=== PATIENT | male | born 1995 | race Caucasian/White ===

== ENCOUNTER 2017-09-06 20:06 | Emergency (ER) | payer OTHER ==
[~2017-09-06] VITALS: Ht 177.8 cm; Wt 81.6 kg
[2017-09-06] MEDS ORDERED: VIBRAMYCIN100 MG PO (21:24)
--- NOTE | 2017-09-06 21:25 | ED SKIN/ALLERGY COMPLAINT ---
History of Present Illness General Chief Complaint: Animal/Insect Bite Stated Complaint: INSECT BITE Source: patient Exam Limitations: no limitations Vital Signs & Intake/Output Vital Signs & Intake/Output Vital Signs Date Time Temp Pulse Resp B/P B/P Pulse O2 O2 Flow FiO2 Mean Ox Delivery Rate 09/07 2127 98.2 80 17 117/76 98 Room Air 09/06 2042 98.0 81 18 111/73 97 Room Air ED Intake and Output 09/07 0000 09/06 1200 Intake Total Output Total Balance Patient 180 lb Weight Weight Reported by Patient Measurement Method Allergies Coded Allergies: No Known Allergies (09/06/17) Reconcile Medications Doxycycline Hyclate (Vibramycin) 100 MG CAPSULE 1 CAP PO BID LYME Triage Note: PT FROM HOME C/O TICK BITE? TO PTS RIGHT SHOULDER? PT STATES HE HAS BEEN OUTSIDE THE PAST WEEK AND THEN 2 DAYS PRIOR NOTED A LITTLE PATO AREA TO HIS RIGHT SHOULDER, PT THOUGHT IT WAS JUST A BRUISE. PTS MOTHER NOTICED A BITE WITH A RED RING THAT BEGAN TO FORM LAST NIGHT. PTS VSS. Triage Nurses Notes Reviewed? yes Onset: Abrupt Duration: day(s): (2), constant, continues in ED Timing: single episode today Severity: mild, moderate Location: extremities Possible Factors: insect bite No Modifying Factors: none HPI: 22-year-old male with no past medical history positive for evaluation of a rash to his right shoulder. Patient states that he noticed a small red area on his right shoulder several days ago that progressed to form a bull's-eye rash. He denies any other symptoms he never found a tick on him. No fever or joint pain fatigue weakness sweats or chills. (Paddy Townsend) Past History Travel History Traveled to [place] past 21 day No Medical History Any Pertinent Medical History? see below for history Neurological: NONE EENT: NONE Cardiovascular: NONE Gastrointestinal: NONE Hepatic: NONE Renal: NONE Musculoskeletal: NONE Psychiatric: NONE Endocrine: NONE Surgical History Surgical History: non-contributory Psychosocial History What is your primary language Yi Tobacco Use: Current Not Daily Family History Hx Contributory? No (Paddy Townsend) Review of Systems Review of Systems Constitutional: Reports: no symptoms. EENTM: Reports: no symptoms. Respiratory: Reports: no symptoms. Cardiovascular: Reports: no symptoms. GI: Reports: no symptoms. Genitourinary: Reports: no symptoms. Musculoskeletal: Reports: no symptoms. Skin: Reports: see HPI, rash. Neurological/Psychological: Reports: no symptoms. Hematologic/Endocrine: Reports: no symptoms. Immunologic/Allergic: Reports: no symptoms. All Other Systems: Reviewed and Negative (Paddy Townsend) Physical Exam Physical Exam General Appearance: well developed/nourished, no apparent distress, alert, awake Head: atraumatic, normal appearance Eyes: Bilateral: normal appearance, PERRL, EOMI. Ears, Nose, Throat: hearing grossly normal Neck: normal inspection, supple, full range of motion Respiratory: no respiratory distress Peripheral Pulses: 2+ radial (R), 2+ radial (L) Back: normal inspection, normal range of motion Extremities: normal inspection, normal range of motion, no edema Neurologic/Psych: no motor/sensory deficits, awake, alert, oriented x 3, normal gait Skin: intact, normal color, warm/dry Skin Problem Location: upper extremities Skin Problem Character: THERE IS A ANNULAR ERYTHEMATOUS LESION ABOUT 3 CM IN DIAMETER LOCATED ON THE RIGHT ANTERIOR SHOULDER. nO UNDERLYING ERYTHEMA DISCHARGE OR FOCAL FLUCTUANT AREAS (Paddy Townsend) Progress Differential Diagnosis: abscess/cellulitis, allergic reaction, contact dermatitis, drug reaction, erythema multiforme, lyme disease, urticaria Plan of Care: Patient seen and evaluated. He has a pulse of rash to the right shoulder. He spent a lot of time outside suspect erythema migrans area patient will be covered with dicyclomine. Advise follow-up to get a Lyme disease test in 2-4 weeks with primary care doctor discussed return precautions patient AGREES. (Paddy Townsend) Departure Departure Disposition: HOME OR SELF CARE Condition: Stable Clinical Impression Primary Impression: Erythema migrans (Lyme disease) Referrals: Patient Has No Primary Care Dr (PCP/Family) Additional Instructions: Take doxycycline as directed for full course. Tylenol or IBUProfen as needed for pain. Make a follow-up appointment with a primary care doctor for a Lyme disease test in 2-4 weeks. Monitor symptoms return with any concerns. Departure Forms: Customer Survey General Discharge Information Prescriptions: Current Visit Scripts Doxycycline Hyclate (Vibramycin) 1 CAP PO BID #[id number] CAP (Paddy Townsend) PA/PATIENT ACCESS ASSOCIATE Co-Sign Statement Statement: ED Attending supervision documentation- [] I saw and evaluated the patient. I have also reviewed all the pertinent lab results and diagnostic results. I agree with the findings and the plan of care as documented in the PA's/PATIENT ACCESS ASSOCIATE's documentation. [X] I have reviewed the ED Record and agree with the PA's/PATIENT ACCESS ASSOCIATE's documentation. [] Additions or exceptions (if any) to the PAs/PATIENT ACCESS ASSOCIATE's note and plan are summarized below: [] (Florence JACOBO,Dave Snyder)
[2017-09-06 21:28] VITALS: BP 117/76
== END 2017-09-06 21:29 ==
LOC: ERH 20:06
DX: A69.20 Lyme disease, unspecified (principal)